=== PATIENT | female | born 1995 | race Asian ===

== ENCOUNTER 2025-04-28 10:29 | Outpatient (AMB) | payer BC, SELFPAY ==
--- NOTE | 2025-04-28 10:35 | A.OFFPC_ITS ---
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 Railroader Required: No Allergies No Known Allergies Allergy (Verified 04/28/25 10:38) Medication List - Last Reconciled 04/28/25 by Stephanie Canales PA-C No Known Home Meds Tobacco use date assessed: 04/28/25 Dental Screening Dental Screen Date: 04/28/25 Did you have a dental visit in the last 12 months?: Yes Did you have a dental problem in the last 6 months where you did not have access to dental care?: No Was dental information given to patient?: Patient has dentist HPI HUMAN RESOURCES PROJECT COORDINATOR CPE HPI Details Pt is a 29 y/o female who presents today to establish care and for a physical exam. No acute concerns today. 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 sexually active, does not always use condoms and denies ever having std testing before. asymptomatic. 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 [facility] Family History (Updated 04/28/25 @ 10:46 by Sergei Yin MA) Father FH: mental illness Hypertension High cholesterol Sister FH: mental illness Paternal Grandmother Diabetes Maternal Grandfather Stomach cancer Paternal Grandfather Stomach cancer Social History (Updated 04/28/25 @ 10:40 by Sergei Yin MA) Housing: House Alcohol intake: current Comment: 1-2 monthly Patient Tobacco Use Status: Never used Tobacco e-Cigarette/Vaping Use: Never Used service: No Current occupational status: employed 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 1. Little interest or pleasure in doing things: not at all 2. Feeling down, depressed, or hopeless: not at all 3. Trouble falling or staying asleep, or sleeping too much: several days 4. Feeling tired or having little energy: not at all 5. Poor appetite or overeating: not at all 6. Feeling bad about yourself - or that you are a failure or have let yourself or your family down: not at all 7. Trouble concentrating on things, such as reading the newspaper or watching television: not at all 8. Moving or speaking so slowly that other people could have noticed. Or the opposite - being so fidgety or restless that you have been moving around a lot more than usual: not at all 9. Thoughts that you would be better off or of hurting yourself in some way: not at all Total score: 1 Depression Screening Interpretation: Negative Depression Screening Done: Yes 87892 - PHQ-9 Billing: Yes Source: Developed by Drs. London Alberto, Esperanza Tay, Shelton Bojorquez and colleagues, with an educational peace from [employer]. Thrive Questionnaire Date Thrive assessed: 04/21/25 I am a: Patient What is your living situation today?: I have a steady place to live Within the past 12 months, did the food you bought not last and you didn't have the money to get more?: Never true Within the past 12 months, did you worry whether your food would run out before you got money to buy more?: Never true Do you have trouble paying for medicines?: No Do you have trouble getting transportation to medical appointments?: No Do you have trouble paying your heating and electricity bill?: No Do you have trouble taking care of your child, family member or friend?: No Do you have trouble with day-to-day activities such as bathing, preparing meals, shopping, managing finances, etc.?: No Are you currently unemployed and looking for a job?: No Are you interested in more education?: No Please select the resources that you would like help with: None Currently or been in a relationship where the following occur: No concerns reported THRIVE Score: 0 AUDIT C Alcohol Use Questionnaire (AUDIT-C) 1. How often do you have a drink containing alcohol?: Monthly or less 2. How many drinks containing alcohol do you have on a typical day when you are drinking?: 1 or 2 3. How often do you have six or more drinks on one occasion?: Never Total Score: 1 PAUL-7 AMB Questionnaire PAUL-7 Date PAUL - 7 assessed: 04/28/25 Feeling nervous, anxious, or on edge: 0 = Not at all Not being able to stop or control worryin = Not at all Worrying too much about different things: 0 = Not at all Trouble relaxin = Not at all Being so restless that it is hard to sit still: 0 = Not at all Becoming easily annoyed or irritable: 0 = Not at all Feeling afraid as if something awful might happen: 0 = Not at all Total PAUL-7 score (0-4 normal; 5-9 mild; 10-14 moderate; 15-21 severe): 0 Source: Developed by Drs. London Alberto, Esperanza Tay, Shelton Bojorquez and colleagues, with an educational peace from [employer]. PAUL-7 Assessment Billing PAUL-7 Assessment Tool: PAUL-7 Assessment 70774 Physical exam (Primary Care) Vital Signs: Last Vital Signs Temp 98.3 F 04/28/25 10:41 Pulse 85 04/28/25 10:41 Resp 18 04/28/25 10:41 BP 124/64 04/28/25 10:41 Pulse Ox 98 04/28/25 10:41 Oxygen Delivery Method Room Air 04/28/25 10:41 BMI result Body Mass Index 24.7 Tobacco/Smoking Status: Tobacco use Status Tobacco use date assessed 04/28/25 04/28/25 10:47 Patient Tobacco Use Status Never used Tobacco 04/28/25 10:47 e-Cigarette/Vaping Use Never Used 04/28/25 10:47 PHQ-9: PHQ-9 Score PHQ-9: Total score 1 04/28/25 10:47 Depression Screening Interpretation: Negative Thrive Assessment: Date of Thrive Assessment Date Thrive assessed 04/21/25 04/28/25 10:47 Currently or been in a relationship where the following occur: No concerns reported Const Orientation/consciousness: patient oriented x3 HENMT Ears: hearing grossly normal bilaterally and TM's normal bilaterally General nose exam: No nasal polyps present Face and sinus: Yes sinuses nontender Mouth: Normal oral and palatal mucosa present Eyes Pupils: Equal, round and reactive pupils present EOM: EOMs intact bilaterally Neck Neck: Yes full ROM and Yes no lymphadenopathy Thyroid: Thyroid normal Chest Chest palpation & inspection: normal inspection of the chest Resp Auscultation: clear to auscultation bilaterally Cardio Rate: regular rate Rhythm: regular rhythm Heart sounds: S1 normal heart sound present and S2 normal heart sound present Peripheral pulses: Peripheral pulses 2+ throughout GI Other: Soft, nontender Auscultation: normal bowel sounds Rectal Exam - Female: deferred General: Yes no CVA tenderness Back/Spine/Pelvis Other: Nontender Back: no CVA tenderness Skin General skin exam: no rashes or lesions noted Neuro General: patient oriented x3, gait normal, CN's II-XI intact bilaterally and deep tendon reflexes 2+ bilaterally Cranial nerves: Yes Equal, round and reactive pupils present Motor exam (neuro): 5/5 motor strength present throughout Sensory Exam: double simultaneous stimulation for sensation normal Coordination: [id number] test normal and Romberg test negative Extrem General: Yes normal to inspection and Yes full ROM Psych Affect: normal affect Attitude: cooperative Thought process: Normal thought process present Thought content: Normal thought content present Insight: Good insight present (Psych) Judgement: Good judgement present (Psych) Coding Level of Care Code New Pt Prev Care 18-39yr(20814 Diagnoses Routine general medical examination at a health care facility Z00.00 Fatigue R53.83 Additional Codes PAUL-7 Assessment Billing - PAUL-7 Assessment Tool: PAUL-7 Assessment 85858 ([id number]) PHQ-9 - 36183 - PHQ-9 Billing: Yes ([id number]) Assessment & Plan Assessment & Plan (1) Routine general medical examination at a health care facility: Code(s): Z00.00 - Encounter for general adult medical examination without abnormal findings Plan: reviewed flu shot today labs ordered std testing ordered referral to circus trainer (2) Fatigue: Code(s): R53.83 - Other fatigue Category: Medical Plan: labs ordered. f/u if sx change or worsen Orders: Orders Complete Blood Count Auto Diff Today Z00.00 - Encounter for general adult medical examination without abnormal findings Comprehensive [place]. Panel Fast Today Z00.00 - Encounter for general adult medical examination without abnormal findings CT NG by PCR Urine Today R30.0 - Dysuria Hepatitis C Antibody Today Z20.2 - Contact with and (suspected) exposure to infections with a predominantly sexual mode of transmission Syphilis Screen Today Z20.2 - Contact with and (suspected) exposure to infections with a predominantly sexual mode of transmission Vitamin B12 and Folate Today R53.83 - Other fatigue IRON PROFILE Today R53.83 - Other fatigue Lipid Panel Today Z00.00 - Encounter for general adult medical examination without abnormal findings TSH reflex Free T4 Today Z00.00 - Encounter for general adult medical examination without abnormal findings UA CC w/rflx Micro + Cult Today R30.0 - Dysuria, Z00.00 - Encounter for general adult medical examination without abnormal findings HIV Ab/Ag Today Z20.2 - Contact with and (suspected) exposure to infections with a predominantly sexual mode of transmission Ferritin Today R53.83 - Other fatigue Referrals OXYHYDROGEN WELDER Referral Z01.419 - Encounter for gynecological examination (general) (routine) without abnormal findings Dermatology Referral Z12.83 - Encounter for screening for malignant neoplasm of skin
[2025-04-28 10:41] VITALS: BP 124/64; PULSE 85; RESP 18; TEMP 36.8; O2SAT 98; BMI 24.7
--- OUTSIDE RECORDS SUMMARY | 2025-04-28 12:40 | XMS_ITS | Clinical Summary ---
Author Organization [facility] Address [address] [place] [phone] Phone Care Team Providers Care Tabulating Machine Mechanic Name Role Phone Genesis Mccullough Primary Care Provider Medications VIENVA 0.1-20 mg-mcg per tablet 04/04/2023 A ctive Family History Medical History Relation Comments Stomach cancer Maternal Grandfather Stomach cancer Paternal Grandfather Diabetes Paternal Grandmother Relation Status Comments Father Alive Maternal Grandfather Alive Maternal Grandmother Alive Mother Alive Paternal Grandfather Paternal Grandmother Alive Sister Alive Social History Tobacco Use Types Packs/Day Years Used Date Smoking Tobacco: Never Smokeless Tobacco: Never Tobacco Cessation:Counseling Given: Not Answered Alcohol Use Standard Drinks/Week Comments Yes 0 (1 standard drink = 0.6 oz pur e alcohol) monthly Education Answer Date Recorded Are you interested in more education? Not on eric e 04/02/2023 Are you concerned about learning? Not on file 04/02/2023 No 04/02/2023 No 04/02/2023 Digital Access Answer Date Recorded No 04/02/2023 No 04/02/2023 Reliable internet access at home? Not on file 04/02/2023 Device with a working camera? Not on file Comments No Sex and Gender Information Value Date Recorded Sex Assigned at Not on file Legal Sex Female 10:34 AM EDT Gender Identity Not on file Sexual Orientation Not on file Last Filed Vital Signs Vital Sign Reading Time Taken Comments Blood Pressure - - Pulse - - Temperature - - Respiratory Rate - - Oxygen Saturation - - Inhaled Oxygen Concentration - - Weight 62.1 kg (137 lb) 06/18/2023 9:04 AM EST Height 157.5 cm (5' 2 ) 06/18/2023 9:04 AM EST Body Mass Index 25.06 06/18/2023 9:04 AM EST Plan of Treatment Health Maintenance Due Date Last Done Comments Adult Td,Tdap Booster 1995 DEPRESSION SCREENING 2009 HEPATITIS C SCREENING 10/08/2015 HIV ONE-TIME SCREENING (18-6 5 YEARS) 10/08/2015 INFLUENZA VACCINE (#1) 2025 COVID-19 VACCINE ( - 2024-2 6 season) 2025 PAP SMEAR 06/18/2026 06/18/2023 SMOKING STATUS SCREENING (On ce After 26 Yrs) Completed 06/18/2023 HEPATITIS A VACCINES Aged Out No long er eligible based on patient's age to complete this topic HIB VACCINES Aged Out No longer eligi ble based on patient's age to complete this topic MENINGOCOCCAL VACCINES (ACWY) Aged Out No longer eligible based on patient's age to complete this topic MENINGOCOCCAL VACCINES (B) Aged Out N o longer eligible based on patient's age to complete this topic PNEUMOCOCCAL VACCINES (0-49 years) Aged Out No longer eligible based on patient's age to complete this topic Medical Devices Not on file Procedures Procedure Name Priority Date/Time Associated Diagnosis Comments PAP TEST Routine 06/18/2023 12:00 AM EST from Last 3 Months or Most Recently Relevant to Health Maintenance Results * Pap Test (06/18/2023 12:00 AM EST) 06/18/2023 06/19/2023 9:2 6 AM EST Narrative SEE NARRATIVE - 06/23/2023 1:46 PM EST [address] [address] Senior Asp Net Developer: Norma Garcia MD BARGE WORKER Cytology Report FINAL DIAGNOSIS A. PAP SMEAR (SUREPATH) CE: SPECIMEN ADEQUACY: Satisfactory for evaluation; transformation zone present. INTERPRETATION: NEGATIVE FOR INTRAEPITHELIAL LESION OR MALIGNANCY. Reactive changes. Electronically Signed Out By: MD Cierra Majano CT(ASCP) By his/her signature above, the pathologist listed as making the Final Diagnosis certifies that he/she has personally reviewed this case and confirmed or corrected the diagnosis. The Pap test is a screening test primarily for squamous cancers and precursors and has associated false-negative and false-positive results. New technologies such as liquid-based preparations may decrease but will not eliminate all false-negative results. Regular sampling and follow-up of unexplained clinical signs and symptoms are recommended to minimize false negative results. CLINICAL HISTORY Date of Last Menstrual Period: 05-25-2023 Other Clinical Conditions: Screening Pap SPECIMEN SOURCE A: PAP SMEAR (SUREPATH) CE Patient Name: CDERIC JASSO : 1995 (Age: 27) Sex: F Institution: [facility] Location: [facility] Date of Collection: 06/18/2023 Date of Reported: 06/23/2023 13:46 Results to: Demetris Calabrese MD Demetris Calabrese MD CYTOLOGY ORDERABLES Final Result SEE NARRATIVE from Last 3 Months or Most Recently Relevant to Health Maintenance Insurance [place] [facility] PPO EPO [place] [facility] PPO EPO Care Teams Tabulating Machine Mechanic Relationship Specialty Start Date End Date Genesis Mccullough PA [address] [place] [id number] PCP - General Physician Product Development Actuary 04/02/23 Additional Source Comments The information contained in this document represents components of the legal health record. It is not the complete legal health record.[facility]
--- OUTSIDE RECORDS SUMMARY | 2025-04-28 12:40 | XMS_ITS | Clinical Summary ---
Author Organization [facility] Address [address] [facility] [address] [place] [address] Care Team Providers Care Manager Engine Name Role Phone Bree Carlisle MD Primary Care Provider [phone] Social History Tobacco Use Types Packs/Day Years Used Date Smoking Tobacco: Never Assessed Comments Unknown Sex and Gender Information Value Date Recorded Sex Assigned at Not on file Legal Sex Female 11:35 PM EST Gender Identity Not on file Sexual Orientation Not on file Last Filed Vital Signs Vital Sign Reading Time Taken Comments Blood Pressure 110/64 05/22/2021 7:46 AM EST Pulse 88 05/22/2021 7:46 AM EST Temperature - - Respiratory Rate - - Oxygen Saturation - - Inhaled Oxygen Concentration - - Weight - - Height 157.5 cm (5' 2 ) 05/22/2021 7:46 AM EST Body Mass Index - - Plan of Treatment Not on file Care Teams Manager Engine Relationship Specialty Start Date End Date Bree Carlisle MD PCP - General 08/10/21
== END 2025-04-28 11:07 | disposition home or self-care (01) ==
LOC: HO.HMCFM 10:30
PROVIDERS: PCP Physician Assistant; Visit Provider Physician Assistant
DX: Z00.00 Encounter for general adult medical examination without abnormal findings (principal); R53.83 Other fatigue; Z23 Encounter for immunization

== ENCOUNTER → 2025-04-28 10:29 | Outpatient (BNVA) | payer BC, SELFPAY | PROVIDERS: PCP Physician Assistant; Visit Provider Physician Assistant | DX: Z00.00 Encounter for general adult medical examination without abnormal findings (principal); R53.83 Other fatigue; R30.0 Dysuria; Z23 Encounter for immunization | CPT/HCPCS: 90471; 90656; 96127 ==

== ENCOUNTER 2025-04-29 08:12 | Outpatient (REF) | payer BC, SELFPAY ==
--- OUTSIDE RECORDS SUMMARY | 2025-04-29 08:33 | XMS_ITS | Clinical Summary ---
Author Organization [facility] Address [address] [facility] [address] [place] [address] Care Team Providers Care Tax Services Specialist Name Role Phone Bree Carlisle MD Primary Care Provider [phone] Social History Tobacco Use Types Packs/Day Years [...] of Treatment Not on file Care Teams Tax Services Specialist Relationship Specialty Start Date End Date Bree Carlisle MD PCP - General 08/10/21
[2025-04-29 10:11] LABS: MANUAL DIFF FLAG NO
[2025-04-29 10:18] LABS: Hematocrit 40.8 % (37.0-47.0); Hemoglobin 13.9 g/dl (12.0-16.0); Imm Gran Abs Auto 0.01 X10*3/uL (0.00-0.03); Imm Gran Pct Auto 0.2 % (0.0-0.4); Lymphocytes Absolute Auto 1.6 X10*3/uL (1.2-4.9); Mean Corpuscular HGB Conc 34.1 g/dl (31.0-35.0); Mean Corpuscular Hemoglobin 29.1 pg (27.0-33.0); Mean Corpuscular Volume 85.4 fL (80.0-98.0); NRBC Abs Auto 0.000 X10*3/uL (0.0-0.012); NRBC Pct Auto 0.0 /100WBC (0.0-0.2); Platelet Count 270 X10*3/uL (160-400); Red Blood Count 4.78 X10*6/uL (4.20-5.50); White Blood Count 5.8 X10*3/uL (4.8-10.8)
[2025-04-29 10:27] LABS: Appearance Urine Cloudy; Glucose Urine UA Negative (Negative); PH 6.0 (5.0-9.0); Specific Gravity - Urine 1.025 (1.005-1.025); UMIC TRIGGER UACC YES
[2025-04-29 10:36] LABS: UACC Culture Trigger YES
[2025-04-29 10:49] LABS: Alanine Aminotransferase 27 U/L (0-31); Albumin Level 4.5 g/dL (3.5-5.0); Alkaline Phosphatase 42 U/L (39-117); Anion Gap 9 (12-20); Aspartate Amino Transferase 20 U/L (5-31); Blood Urea Nitrogen 17 mg/dL (9-16); Calcium 8.9 mg/dL (8.4-10.2); Carbon Dioxide 25 mmol/L (22-29); Chloride 107 mmol/L (96-108); Cholesterol 186 mg/dL (<200); Estimated Glomerular Filt Rate > 60; HDL Cholesterol 39 mg/dL (>40); Iron 135 mcg/dL (30-160); Percent Iron Saturation 47 % (15-50); Potassium 4.0 mmol/L (3.3-5.1); Sodium 137 mmol/L (135-145); Total Iron Binding Capacity 286 mcg/dL (228-428); Total Protein 7.1 g/dL (6.5-8.0); Triglycerides 114 mg/dL (<150); Unsaturated Iron Binding 151 ug/dL
[2025-04-29 10:51] LABS: HIV Num 1 0.06 S/CO (0.00-0.99); Syphilis Screen Nonreactive (Nonreactive); ~HepC Num1 0.06 S/CO (0.00-0.79); ~Hepatitis C Antibody Nonreactive (Nonreactive)
[2025-04-29 10:54] LABS: Ferritin 100 ng/mL (10-122)
[2025-04-29 11:04] LABS: Folate 11.7 ng/mL (> or = 4.0); Vitamin B12 808 pg/mL (200-900)
[2025-04-29 12:07] LABS: CT PCR Urine NOT DETECTED (Not Detect.); NG PCR Urine NOT DETECTED (Not Detect.)
== END 2025-04-29 08:13 | disposition home or self-care (01) ==
LOC: HO.HMGCLDS 08:12
PROVIDERS: PCP Physician Assistant; Visit Provider Physician Assistant
DX: Z00.00 Encounter for general adult medical examination without abnormal findings (principal); Z20.2 Contact with and (suspected) exposure to infections with a predominantly sexual mode of transmission; Z11.4 Encounter for screening for human immunodeficiency virus [HIV]; Z11.59 Encounter for screening for other viral diseases; Z13.6 Encounter for screening for cardiovascular disorders; R53.83 Other fatigue; R30.0 Dysuria
CPT/HCPCS: 80053; 80061; 81001; 82607; 82728; 82746; 83540; 84443; 85025; 86780; 86803; 87086; 87147; 87389; 87491; 87591